=== PATIENT | female | born 1995 | race Caucasian/White ===

== ENCOUNTER → 2018-03-18 | Day surgery (SDC) | payer OTHER ==
[~2018-03-18] VITALS: Ht 172.7 cm; Wt 61.2 kg
--- NOTE | ~2018-03-18 | O ---
[place], [place] OPERATIVE NOTE NAME: DOMENICO MAX UNIT #: [id number] ROOM: DOCTOR: MARTI PENN MD BIRTHDATE: [birth year] DOS: 03/18/2018 HISTORY OF PRESENT ILLNESS: A 22-year-old patient who presented with chief complaint of constipation, bowel movement 1-2 per week quite distressed. PAST MEDICAL HISTORY: Unremarkable. MEDICATION: control pills. SOCIAL HISTORY: Nonsmoker, social alcohol consumer. FAMILY HISTORY: Grandfather with colonic carcinoma. PROCEDURE: Today's procedure part of investigation is colonoscopy. PREMEDICATION: Propofol. SCOPE: Olympus folding colonoscope 10L video. REPORT: After putting the patient in left lateral position and application of lubricant to the scope, the scope was introduced. Thereafter, under direct visualization, advanced through the length of colon without difficulty; however, there is severe tortuosity of sigmoid colon. This overcame with appropriate maneuvers. Base of the cecum explored, appendiceal orifice identified, photographed. Scope was gradually withdrawn from ascending, transverse, descending colon. The patient extubated, tolerated procedure well. IMPRESSION: Sigmoid colon tortuosity. Otherwise, normal colonoscopic examination. PLAN AND DISCUSSION: High fiber fruit diet. At the present time, I will just use a stool softener with dietary modifications for her, Colace 100 mg not be suffice for management, then we will resort to other modalities MiraLax and otherwise as we advanced reassessing her modification of management as needed. She is too young to be dependent on laxatives and she needs to correct her dietary habit. Follow-up colonoscopy in 10 years unless patient has symptoms for which follow-up should be sooner. Thank you very much indeed for your kind referral. [place], [place] OPERATIVE NOTE NAME: DOMENICO MAX UNIT #: [id number] ROOM: DOCTOR: MARTI PENN MD BIRTHDATE: [birth year] MARTI PENN MD CM:OPRECORD:OPERATIVE NOTE [id number] MARTI PENN MD 03/31/18 0740 interface
[2018-03-18 08:56] VITALS: BP 106/67
[2018-03-18 09:42] VITALS: BP 79/44
[2018-03-18 09:57] VITALS: BP 87/45
[2018-03-18 10:12] VITALS: BP 95/66
[2018-03-18 10:19] VITALS: BP 104/71
== END | disposition home or self-care (01) ==
LOC: SDC 03-12 15:30
DX: K63.89 Other specified diseases of intestine (principal); Z80.0 Family history of malignant neoplasm of digestive organs

== ENCOUNTER → 2019-11-08 | Outpatient (CLI) | payer OTHER | END | disposition home or self-care (01) | LOC: RAD 17:00 | DX: M41.85 Other forms of scoliosis, thoracolumbar region (principal) ==

== ENCOUNTER → 2020-12-21 | Outpatient (CLI) | payer OTHER | LOC: RESCLI 07:00 | PROVIDERS: ATTEND Internal Medicine | DX: F31.9 Bipolar disorder, unspecified (principal); F41.9 Anxiety disorder, unspecified; Z79.899 Other long term (current) drug therapy ==

== ENCOUNTER → 2023-02-10 | Day surgery (SDC) | payer OTHER ==
[~2023-02-10] VITALS: Ht 170.1 cm; Wt 65.8 kg
[~2023-02-10] MED LIST: LAMICTAL200 MG PO; LO LOESTRIN FE1 EACH PO
[2023-02-10 07:15] VITALS: BP 108/66
[2023-02-10 08:38] VITALS: BP 93/50
[2023-02-10 08:53] VITALS: BP 103/60
[2023-02-10 09:13] VITALS: BP 108/67
== END | disposition home or self-care (01) ==
LOC: SDC 01-30 09:30
PROVIDERS: ATTEND Surgery
DX: K59.00 Constipation, unspecified (principal); F31.9 Bipolar disorder, unspecified; F41.9 Anxiety disorder, unspecified; Z79.899 Other long term (current) drug therapy; Z98.890 Other specified postprocedural states

== ENCOUNTER → 2024-05-04 | Outpatient (CLI) | payer SELFPAY | END | disposition home or self-care (01) | LOC: LAB 10:28 | PROVIDERS: ATTEND Nurse Practitioner Women's Health | DX: N91.2 Amenorrhea, unspecified (principal) ==

== ENCOUNTER → 2024-05-11 | Outpatient (CLI) | payer SELFPAY | END | disposition home or self-care (01) | LOC: LAB 08:55 | PROVIDERS: ATTEND Nurse Practitioner Women's Health | DX: N91.2 Amenorrhea, unspecified (principal) ==